=== PATIENT | female | born 1990 | race Caucasian/White ===

== ENCOUNTER → 2017-04-07 21:22 | Observation (INO) ==
--- NOTE | 2017-04-07 23:28 | OB/GYN Progress Note ---
Date of Encounter: 04/07/17 Time of Encounter: 21:40 - Assessment and Plan (1) 38 weeks gestation of Status: Acute (2) False labor Status: Acute Patient was seen and evaluated by RN. No cervical change since her appointment Saturday. Reactive NST. Discharge order given by phone. Objective - Vital Signs Vital Signs: Intake and Output 04/07/17 04/07/17 04/07/17 07:59 15:59 23:59 Other: Weight 86.3 kg Patient Weight 04/07/17 23:59 Weight 86.3 kg
== END | disposition home or self-care (01) ==
LOC: 1NENULAB
PROVIDERS: ADMIT Obstetrics & Gynecology; ATTEND Obstetrics & Gynecology

== ENCOUNTER 2017-04-16 14:58 | Inpatient (IN) ==
[2017-04-16] MEDS ORDERED: Naloxone 0.4 MG/ML INJ IVP PRN (15:19)
[2017-04-16] MEDS ORDERED: Famotidine 20 MG/2 ML VIAL IVP PRN (15:19)
[2017-04-16] MEDS ORDERED: Ondansetron 4 MG/2 ML VIAL IVP PRN (15:19)
[2017-04-16] MEDS ORDERED: Ringers Solution, Lactated 1,000 ML IVC SCH (15:30)
[2017-04-16 16:14] LABS: Basophils % 0.3 %; Eosinophils # 0.2 K/mcL (0.0-0.6); Eosinophils % 1.5 %; Hematocrit 35.2 % (35.3-44.9); Hemoglobin 12.2 g/dL (11.5-15.4); Immature Granulocytes % 0.7 % (0-4); Lymphocytes # 2.3 K/mcL (0.6-4.6); Lymphocytes % 22.3 %; Mean Corpuscular HGB Conc 34.7 g/dL (31.6-35.5); Mean Corpuscular Hemoglobin 30.8 pg (28.0-33.3); Mean Corpuscular Volume 88.9 fL (83.0-100.0); Mean Platelet Volume 11.7 fL (9.4-12.4); Monocytes # 0.6 K/mcL (0.0-1.3); Monocytes % 5.7 %; Neutrophils # 7.1 K/mcL (1.6-8.9); Platelet Count 284 K/mcL (140-400); Red Blood Count 3.96 M/mcL (3.82-4.97); Red Cell Distribution Width 12.3 % (11.5-14.5); Segmented Neutrophils % 69.5 %
--- NOTE | 2017-04-16 16:29 | Anesthesia Evaluation PreOp ---
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 Cervical cerclage under spinal without problems.) : Yes Alcohol Use: none Drug use: none Medications and Allergies [id number]/Iron Fumarate/FA/Dss [ 19 Tablet] 1 tab PO DAILY 04/07/17 [ History] Buprenorphine HCl [Subutex] 1 tab PO BID 04/16/17 [History] Loratadine [Claritin] 1 tab PO DAILY 04/16/17 [History] Macrobid 100 mg Capsule 1 tab PO BID 04/16/17 [History] Allergies Amoxicillin [From Augmentin] Allergy (Verified 04/16/17 15:31) Rash clavulanic acid [From Augmentin] Allergy (Verified 04/16/17 15:31) Rash - Meds/Allergy Pre-op Review Medications Reviewed: Yes Allergies Reviewed: Yes Beta Blockers on Current Med List: No Anesthesia Results - Labs 04/16/17 15:50 Anesthesia Exam vss Weight: 88kg NPO (# of Hours): 3 Pain Scale: 0 Pain Scale Used: Numeric (1 - 10) - HEENT Pupil (Motor): Pupils equal, EOMI Mallampati: II Teeth: Normal Oral Opening: Greater than 3 - INSTRUMENTS SALES REPRESENTATIVE LOC: Oriented INSTRUMENTS SALES REPRESENTATIVE Motor: Normal RUE, Normal LUE, Normal RLE, Normal LLE, Normal Face [employer]UMENTS SALES REPRESENTATIVE Sensory: Normal: RUE, LUE, RLE, LLE, Face - Cardiac Rhythm: Regular - Pulmonary Breath Sounds: bilateral Clear Respiratory Effort: Symmetrical Anesthesia Assess/Plan ASA Score: 2 Modified Ong Scale for Level of Consciousness: Cooperative, oriented, and tranquil Anesthetic Plan: Regional Monitoring Plan: Standard Monitors
[2017-04-16] MEDS ORDERED: *HR* FentaNYL (PF) 100 MCG/2 ML VIAL EP ONE (16:31)
[2017-04-16] MEDS ORDERED: Bupivacaine-MPF 0.25% 10 ML VIAL EP ONE (16:31)
--- NOTE | 2017-04-16 16:44 | OB/GYN History & Physical ---
Date of Encounter: 04/16/17 Time of Encounter: 16:39 Assessment and Plan (1) 39 weeks gestation of Current visit: Yes Status: Acute Patient admitted for delivery (2) Spontaneous rupture of amniotic membranes Current visit: Yes Status: Acute Patient admitted + Nitrazine. Patient grossly ruptured. (3) complicated by subutex maintenance, antepartum Current visit: Yes Status: Acute Infant 5 day hold. History of Present Illness Chief complaint: SROM HPI: Ms. Johnson is a 26 year old female at 39w3d presents to labor and delivery with c/o spontaneous rupture of membranes. Patient states her water broke around 1300. Patient denies any color or odor. Patient denies contractions or VB. Patient reports +FM. Patient had a cerclage removed on 2016. Patient has history of 20 and 22 week delivery. Patient is on Subutex. Blood type: B+, Rubella: Immune, Hep B: Negative, GBS: negative. Past Med Surg Social Fam HX - Past Medical History Source: patient Medical history: no medical history Psychiatric history: no psych history - Past Surgical History Surgical History: other - Social History Smoking Status: Former smoker Smokeless Tobacco Status: No Alcohol use: none Drug use: none Activity Level: Independent ambulation Recent Out of Country Travel Within the Last 8 Weeks: No Exposure or Possible Exposure to Illness During Travel: No - Family History Mother Adopted: No Living Status: Still Living Hx Family Cardiac Disorders: No Hx Family Respiratory Disorders: No Hx Family Cancer: Yes Hx Family GI Disorders: No Hx Family Genitourinary Disorders: No Hx Family Endocrine Disorder: Yes Hx Family Musculoskeletal Disorders: No Hx Family Neuromuscular Disorders: No Hx Family Neurologic Disorders: No Hx Family HEENT Disorders: No Hx Family Autoimmune Disorders: No Hx Family Reproductive Disorders: No Hx Family Psychosocial Disorders: No Hx Family Medical Disorders: No Obstetrical History - Pregnancies : 3 Para: 0 Term: 0 : 2 Ab's: 0 Livin - History/Complications History/Complications: 20 week and 22 week vaginal delivery Medications and Allergies Cow500/Iron Fumarate/FA/Dss [ 19 Tablet] 1 tab PO DAILY 04/07/17 [ History] Buprenorphine HCl [Subutex] 1 tab PO BID 04/16/17 [History] Loratadine [Claritin] 1 tab PO DAILY 04/16/17 [History] Macrobid 100 mg Capsule 1 tab PO BID 04/16/17 [History] Allergies Amoxicillin [From Augmentin] Allergy (Verified 04/16/17 15:31) Rash clavulanic acid [From Augmentin] Allergy (Verified 04/16/17 15:31) Rash Review of System OB - Constitutional Constitutional ROS IM: no chills, no fatigue, no fever(s), no headache(s) - Cardiovascular Cardiovascular: pedal edema, no chest pain, no lightheadedness, no palpitations , no rapid heart rate, no slow heart rate, no syncope - Respiratory Respiratory: no cough, no dyspnea - Gastrointestinal Gastrointestinal: no abdominal pain, no constipation, no cramping, no diarrhea, no heartburn, no nausea, no vomiting - Genitourinary Genitourinary: no abnormal vaginal bleeding, no dysuria, no flank pain, no urinary incontinence, no urinary urgency, no vaginal discharge, no vaginal odor , no vaginal pruritis Exam - Constitutional Constitutional: well developed, well nourished, no acute distress, average body habitus - HEENT HEENT: Normocephaly, Mucus Membranes Moist - Neck Neck exam: full ROM, supple - Lungs Respiratory exam: CTAB - Cardiovascular Cardiovascular exam: RRR, +S1, +S2 - Abdomen Abdomen: Present: bowel sounds normal, gravid, non tender - Extremities Extremities exam: full ROM, normal inspection, pedal edema (1+ bilateral) Deep Tendon Reflex Grade: 2+ Normal - Cervix Dilation: 2 (per RN) Effacement: 80 - Uterus Uterus exam: Present: normal size, normal contour - Anus/Rectum Anus/Rectum: Present: normal perianal skin (FHR 135 bpm moderate variability + 15x15 accels no decels noted. Irregular contractions noted. ) Results Result Diagrams: 04/16/17 15:50 Abnormal lab results Hct 35.2 % (35.3-44.9) L 04/16/17 15:50 All other labs normal. - VTE Reasons for not Prescribing Prophylaxis: Treatment not Indicated - Low risk for VTE
[2017-04-16] MEDS ORDERED: Epidural Premix (fent/bupiv) 110 ML EP SCH (16:45)
[2017-04-16] MEDS ORDERED: miSOPROStol 100 MCG TABLET PO STA (17:12)
--- NOTE | 2017-04-16 19:31 | OB Labor Progress Note ---
Date of Encounter: 04/16/17 Time of Encounter: 19:29 Labor Progress Note - Subjective Subjective: Patient breathing through contractions. Patient reports the contractions are getting stronger and closer together. - Cervix Cervix: 3/90/-1 - Heart Tones Heart Tones: 135 bpm moderate variability +15x15 accels no decels noted. - [place]: 2-3 min apart - Interventions Interventions: SVE - Plan Plan: Continue labor management.
[2017-04-16] MEDS ORDERED: *HR* FentaNYL (PF) 100 MCG/2 ML VIAL ONE ×2 (20:15→22:06)
[2017-04-16] MEDS ORDERED: Bupivacaine-MPF 0.25% 10 ML VIAL ONE ×3 (20:16→22:06)
[2017-04-16] MEDS ORDERED: Epidural Premix (fent/bupiv) 110 ML EP ONE (20:16)
--- NOTE | 2017-04-16 20:46 | Anesthesia Procedures ---
Date of Encounter: 04/16/17 Time of Encounter: 20:18 Procedures: Anesthesia - Epidural/Spinal Patient ID/Chart reviewed: Yes Patient examined: Yes OB Eval: Gestational age: 39 OB Eval: : 3 OB Eval: Hx Para: 2 OB Eval: Dilated at (cm): 3 OB Eval: Contractions: Non-stressed pattern Consent Obtained: Yes Supplemental Oxygen: None/Room Air Site Prep: Aseptic Technique, Sterile prep and drape, Povidone-Iodine 1% Patient position: upright Local Anesthetic: Lidocaine 1% Amount of Local Anesthetic used: 3 Touhy Needle Gauge: 18 Touhy Needle Depth (cm): 6 Catheter Depth at Skin (cm): 18 Test Dose (1.5% Lido + Epi): Volume given (mls): 3 Test Dose Result: Negative Loading Dose: 0.25% Marcaine (mls): 8 Loading Dose: Fentanyl (mcg): 100 Loading Dose Administered: Thru Catheter Infusion Med: 0.125% Bupivacaine w/ 2 mcg/ml Fentanyl Infusion Rate (mls/hr): [address]: Tegaderm, Tape Interspace Used: L3-L4 Loss of Resistance (NATALIIA): Yes Blood: No CSF: No Paresthesia: No Vitals + FHT's: VSS and FHTs stable throughout entire procedure.
--- NOTE | 2017-04-16 22:04 | Anesthesia Progress Note ---
Date of Encounter: 04/16/17 Time of Encounter: 21:00 Anesthesia Note - Note Note: 04/16/17 22:00 called to LDR 10 for complaints of pain 9/10 to lower back and abdomen and vagina. Was 3cm at cervical check. VSS. Bolused cateter with 5ml 0.25 % bupivacaine and 5ml 0.9NS. Tolerated well. Upon recheck of patient in 15 minutes , she stated no relief of pain. Pulled back on epidural catheter to 14cm and redosed catheter with 5ml 0.25% bupivacaine and 5ml 0.9 NS. After 15 minutes there is no change in pain level. Patient elects to redo epidural. VSS throughout.
--- NOTE | 2017-04-16 23:10 | Anesthesia Procedures ---
Date of Encounter: 04/16/17 Time of Encounter: 22:09 Procedures: Anesthesia - Epidural/Spinal Patient ID/Chart reviewed: Yes Patient examined: Yes OB Eval: Gestational age: 39 OB Eval: : 3 OB Eval: Hx Para: 2 OB Eval: Dilated at (cm): 3 OB Eval: Contractions: Non-stressed pattern Consent Obtained: Yes Supplemental Oxygen: None/Room Air Site Prep: Aseptic Technique, Sterile prep and drape, Povidone-Iodine 1% Patient position: upright Local Anesthetic: Lidocaine 1% Amount of Local Anesthetic used: 5 Touhy Needle Gauge: 18 Touhy Needle Depth (cm): 6 Catheter Depth at Skin (cm): 15 Test Dose (1.5% Lido + Epi): Volume given (mls): 3 Test Dose Result: Negative Loading Dose: 0.25% Marcaine (mls): 8 Loading Dose: Fentanyl (mcg): 100 Loading Dose Administered: Thru Catheter Infusion Med: 0.125% Bupivacaine w/ 2 mcg/ml Fentanyl Infusion Rate (mls/hr): [address]: Tegaderm, Tape Interspace Used: L2-L3 Loss of Resistance (NATALIIA): Yes Blood: No CSF: No Paresthesia: No Procedure: Patient elected to have epidural redone due to no relief of pain. After multiple attempts (encountered bone at each attempt), successful placement into epidural space at L2-3. Patient tolerated the procedure well. VSS and FHTs stable throughout procedure. Vitals + FHT's: VSS and FHTs stable throughout procedure.
--- NOTE | 2017-04-16 23:31 | OB Labor Progress Note ---
Date of Encounter: 04/16/17 Time of Encounter: 23:29 Labor Progress Note - Subjective Subjective: Comfortable with epidural - Cervix Cervix: 6/100/0 - Heart Tones Heart Tones: RNST - [place]: UC's q - Plan Plan: Expect
--- NOTE | 2017-04-17 01:49 | OB/GYN Procedure Note ---
Delivery - Delivery Date: 04/17/17 Provider: Jarrett Mann Intrapartum events: none Delivery induction: none Delivery monitor: external FHT, external uterine Anesthesia: epidural Estimated Blood Loss: 200 - Infant (s) Infant A Delivery Date: 04/17/17 Infant Delivery Time: 01:33 Presentation: vertex Position: NIRANJAN Route of delivery: Gender: Female Viability: Viable Pounds: 6 Ounces: 6 at 1 minute: 9 at 5 mins: 9 Shoulder Dystocia: not encountered Specimens collected: cord blood Placenta: spontaneous Cord: nuchal cord, 3 umbilical vessels - Repair Episiotomy: none Laceration Description: None - Complications Delivery complications: none - Disposition Mom disposition: stable in LDR disposition: stable in LDR - Comments Comments: Pt s/p of liveborn female without complications. No laceration. Spontaneous delivery of normal placenta. EBL 200 c
[2017-04-17] MEDS ORDERED: Sennosides 8.6 MG TABLET PO PRN (04:46)
[2017-04-17] MEDS ORDERED: Rho Immune Globulin 1,500 UNIT SYRINGE IM PRN (04:46)
[2017-04-17] MEDS ORDERED: Ibuprofen 600 MG TABLET PO PRN (04:46)
[2017-04-17] MEDS ORDERED: Oxytocin 20 units/ LR 1000 mL 20 UNIT/1,000 ML BAG IVC ONE (04:46)
[2017-04-17] MEDS ORDERED: Oxytocin 20 units/ LR 1000 mL 20 UNIT/1,000 ML BAG IVC SCH (04:46)
[2017-04-17] MEDS ORDERED: Measles/Mumps/Rubella Vacc 0.5 ML VIAL SQ PRN (04:46)
[2017-04-17] MEDS ORDERED: Acetaminophen 325 MG TABLET PO PRN (04:46)
[2017-04-17 08:17] VITALS: BP 111/70
--- NOTE | 2017-04-17 08:50 | OB/GYN Progress Note ---
Date of Encounter: 04/17/17 Time of Encounter: 08:48 - Assessment and Plan (1) Vaginal delivery Current Visit: Yes Status: Acute Pt progressing to milestones, pain well managed. Pt on subutex, but took last dose yesterday. Discussed with patient she will need to have rx filled by her usual clinic, as we are unable to prescribe for her, but we can facilitate early discharge so she can obtain rx if desired. Pt verbalizes understanding. (2) complicated by subutex maintenance, antepartum Current Visit: Yes Status: Acute Subjective - Subjective Patient reports: appetite normal, voiding normally, pain well controlled, ambulating normally [place]: doing well Objective - Latest Vital Signs Latest vital signs: Vital Signs Temp Pulse Resp BP Pulse Ox 04/17/17 07:30 98.3 F 95 12 111/70 98 04/17/17 06:10 98.2 F 97 12 117/0 99 04/17/17 05:15 99.1 F 97 14 114/70 98 04/17/17 04:15 98.7 F 85 16 105/67 99 Intake and Output 04/16/17 04/17/17 04/17/17 23:59 07:59 15:59 Output Total 200 / 200 Balance -200 / -200 Output: Urine 200 / 200 Other: Weight 86.4 kg Patient Weight 04/17/17 23:59 Weight 86.4 kg - Exam Lungs: bilateral: normal Chest: Normal S1, Normal S2 Extremities: Present: normal Abdomen: Present: normal appearance, soft Uterus: Present: firm Uterus Position: At Umbilicus - Labs Labs: Laboratory Results - last 24 hr 04/16/17 15:50 WBC 10.2 RBC 3.96 Hgb 12.2 Hct 35.2 L MCV 88.9 MCH 30.8 MCHC 34.7 RDW 12.3 Plt Count 284 MPV 11.7 Immature Gran % 0.7 Seg Neutrophils % 69.5 Lymphocytes % 22.3 Monocytes % 5.7 Eosinophils % 1.5 Basophils % 0.3 Neutrophils # 7.1 Lymphocytes # 2.3 Monocytes # 0.6 Eosinophils # 0.2 Basophils # 0.0
[2017-04-17] MEDS ORDERED: Loratadine 10 MG TABLET PO SCH (09:00)
[2017-04-17] MEDS ORDERED: Prenatal Vit/FA 1 EACH TABLET PO SCH (09:00)
[2017-04-17] MEDS ORDERED: *HR* Buprenorphine HCl 8 MG TAB.SUBL SL SCH (09:00)
[2017-04-17] MEDS ORDERED: Nitrofurantoin (BID) 100 MG CAPSULE PO SCH (09:00)
--- NOTE | 2017-04-17 12:11 | Discharge Summary ---
Date of Encounter: 04/17/17 Time of Encounter: 12:09 - Discharge Diagnosis (1) Vaginal delivery Priority: Primary Status: Acute (2) complicated by subutex maintenance, antepartum Priority: Secondary Status: Acute - Discharge Medications Prescriptions: Ibuprofen [Motrin] 600 mg PO Q6HR PRN #60 tablet PRN Reason: Cramping Docusate [Colace] 100 mg PO BID #60 capsule Home Medications: [id number]/Iron Fumarate/FA/Dss [ 19 Tablet] 1 tab PO DAILY 04/07/17 [ History] Buprenorphine HCl [Subutex] 1 tab PO BID 04/16/17 [History] Loratadine [Claritin] 1 tab PO DAILY 04/16/17 [History] Macrobid 100 mg Capsule 1 tab PO BID 04/16/17 [History] Acetaminophen [Tylenol] 650 mg PO Q6HR PRN #0 tablet 04/17/17 [Rx] Docusate [Colace] 100 mg PO BID #60 capsule 04/17/17 [Rx] Ibuprofen [Motrin] 600 mg PO Q6HR PRN #60 tablet 04/17/17 [Rx] Allergies/Adverse Reactions: Allergies Amoxicillin [From Augmentin] Allergy (Verified 04/16/17 15:31) Rash clavulanic acid [From Augmentin] Allergy (Verified 04/16/17 15:31) Rash Data Procedures and tests throughout hospitalization: Laboratory Tests 04/16/17 15:50 WBC 10.2 RBC 3.96 Hgb 12.2 Hct 35.2 L MCV 88.9 MCH 30.8 MCHC 34.7 RDW 12.3 Plt Count 284 MPV 11.7 Immature Gran % 0.7 Seg Neutrophils % 69.5 Lymphocytes % 22.3 Monocytes % 5.7 Eosinophils % 1.5 Basophils % 0.3 Neutrophils # 7.1 Lymphocytes # 2.3 Monocytes # 0.6 Eosinophils # 0.2 Basophils # 0.0 Labs on day of discharge: Labs from last 24 hours 04/16/17 15:50 WBC 10.2 RBC 3.96 Hgb 12.2 Hct 35.2 L MCV 88.9 MCH 30.8 MCHC 34.7 RDW 12.3 Plt Count 284 MPV 11.7 Immature Gran % 0.7 Seg Neutrophils % 69.5 Lymphocytes % 22.3 Monocytes % 5.7 Eosinophils % 1.5 Basophils % 0.3 Neutrophils # 7.1 Lymphocytes # 2.3 Monocytes # 0.6 Eosinophils # 0.2 Basophils # 0.0 Date of admission: 04/16/17 14:58 Primary care physician: Eduardo Sims MD Consults: 04/17/17 04:46 Consult to [place] Agent [CONS] Routine Comment: Vaginal delivery, consult needed Consult to Radiation Oncology Manager [CONS] Routine Reason for SW Consult: Narcotics addcition narcotics addiction Discharging clinician: Tracey Pearce Anticipated date of discharge: 04/17/17 - Patient Status Disposition: Home, Self-Care Condition: Good Functional capacity at discharge: independent ambulation Overall status at discharge: patient is back to baseline - Discharge Instructions Follow Up With: Eduardo Sims MD [Primary Care Provider] - Jarrett Mann MD [Partnered Physician] - - Diet and Activity Activity: resume usual activities as tolerated Diet: regular diet Hospital Course Reason for admission: IUP at term Delivery: Episiotomy: none Laceration: none Other procedures: none complications: none Discharge diagnosis: IUP at term delivered baby: female Hospital course: Delivery - Delivery Date: 04/17/17 Provider: Jarrett Mann Intrapartum events: none Delivery induction: none Delivery monitor: external FHT, external uterine Anesthesia: epidural Estimated Blood Loss: 200 - Infant (s) A Delivery Date: 04/17/17 Delivery Time: 01:33 Presentation: vertex Position: NIRANJAN Route of delivery: Gender: Female Viability: Viable Pounds: 6 Ounces: 6 at 1 minute: 9 at 5 mins: 9 Shoulder Dystocia: not encountered Specimens collected: cord blood Placenta: spontaneous Cord: nuchal cord, 3 umbilical vessels - Repair Episiotomy: none Laceration Description: None - Complications Delivery complications: none - Disposition Mom disposition: stable in LDR [place] disposition: stable in LDR - Comments Comments: Pt s/p of liveborn female without complications. No laceration. Spontaneous delivery of normal placenta. EBL 200 c Time Attestation: Total time spent providing and/or coordinating discharge services: Time Spent: Less than 30 minutes Exam - Constitutional Vitals: Temp Pulse Resp BP Pulse Ox 98.3 F 95 12 111/70 98 04/17/17 07:30 06/28/17 07:30 04/17/17 10:14 04/17/17 07:30 04/17/17 07:30
== END 2017-04-17 13:00 | disposition home or self-care (01) | DRG 560 ==
LOC: 1NENULAB → OBSVTOIN 14:58 → 1NENUOBS 04-17 04:34
PROVIDERS: ADMIT Obstetrics & Gynecology; ATTEND Obstetrics & Gynecology

== ENCOUNTER 2021-09-11 14:06 | Inpatient (IN) ==
[~2021-09-11 14:06] MED LIST: *HR* Oxytocin 10 UNIT/ML VIAL IVC ONE; miSOPROStoL 100 MCG TABLET RC ONE
[2021-09-11] MEDS ORDERED: Lidocaine 1% 20 ML MDV INFILT PRN (14:09)
[2021-09-11] MEDS ORDERED: Famotidine 20 MG/2 ML VIAL IVP PRN (14:09)
[2021-09-11] MEDS ORDERED: Azithromycin 500 MG in 0.9 % Sodium Chloride 250 ML IVPB PRN (14:09)
[2021-09-11] MEDS ORDERED: Metoclopramide 10 MG/2 ML VIAL IVP PRN (14:09)
[2021-09-11] MEDS ORDERED: Naloxone 0.4 MG/ML INJ IVP PRN (14:09)
[2021-09-11] MEDS ORDERED: Ondansetron 4 MG/2 ML VIAL IVP PRN (14:09)
[2021-09-11] MEDS ORDERED: *HR* Nalbuphine 10 MG/ML AMPUL IV PRN (14:09)
[2021-09-11] MEDS ORDERED: Ringers Solution, Lactated 1,000 ML IVC SCH (14:15)
[2021-09-11] MEDS ORDERED: Oxytocin 20 units/ LR 1000 mL 20 UNIT/1,000 ML BAG IVC SCH (14:15)
[2021-09-11 15:23] LABS: Amphetamine Screen,Urine Negative ng/mL (Cutoff=1000); Barbiturate Screen,Urine Negative ng/mL (Cutoff=200); Benzodiazepines Screen,Urine Negative ng/mL (Cutoff=200); Cannabinoid Screen,Urine Negative ng/mL (Cutoff = 50); Cocaine Screen,Urine Negative ng/mL (Cutoff= 300); Opiate Screen,Urine Negative ng/mL (Cutoff=300); Phencyclidine Screen,Urine Negative ng/mL (Cutoff=25)
[2021-09-11 15:48] LABS: Influenza A PCR Negative (Negative); Influenza B PCR Negative (Negative); Resp. Syncytial Virus PCR Negative (Negative)
[2021-09-11 15:53] LABS: Basophils # 0.1 K/mcL (0.0-0.2); Basophils % 0.5 %; Eosinophils # 0.1 K/mcL (0.0-0.6); Eosinophils % 1.3 %; Hematocrit 42.5 % (35.3-44.9); Hemoglobin 14.7 g/dL (11.5-15.4); Immature Granulocytes % 0.8 % (0-4); Lymphocytes % 20.1 %; Mean Corpuscular HGB Conc 34.6 g/dL (31.6-35.5); Mean Corpuscular Hemoglobin 32.4 pg (28.0-33.3); Mean Corpuscular Volume 93.6 fL (83.0-100.0); Mean Platelet Volume 12.7 fL (9.4-12.4); Monocytes # 0.7 K/mcL (0.0-1.3); Monocytes % 7.1 %; Neutrophils # 7.1 K/mcL (1.6-8.9); Platelet Count 298 K/mcL (140-400); Red Blood Count 4.54 M/mcL (3.82-4.97); Red Cell Distribution Width 13.1 % (11.5-14.5); Segmented Neutrophils % 70.2 %
[2021-09-11 15:54] LABS: SARS-CoV-2 by PCR (In House) Negative (Negative)
[2021-09-11] MEDS ORDERED: EPHEDrine 50 MG/ML VIAL IVP PRN (19:44)
[2021-09-11] MEDS ORDERED: Epidural Premix (fent/bupiv) 110 ML EP SCH (19:45)
[2021-09-11] MEDS ORDERED: Epidural Premix (fent/bupiv) 0 ML EP ONE (19:48)
[2021-09-11] MEDS ORDERED: Benzocaine/Menthol 56 GM AEROSOL SPRAY TP PRN (21:24)
[2021-09-11] MEDS ORDERED: Rho Immune Globulin 1,500 UNIT SYRINGE IM PRN (21:24)
[2021-09-11] MEDS ORDERED: Lanolin 7 G OINT...G. TP PRN (21:24)
[2021-09-11] MEDS ORDERED: Measles/Mumps/Rubella Vacc 0.5 ML VIAL SQ PRN (21:24)
[2021-09-11] MEDS ORDERED: Ondansetron ODT 4 MG TAB.RAPDIS SL PRN (21:24)
[2021-09-11] MEDS: Acetaminophen 325 MG TABLET PO SCH (23:23)
[2021-09-12] MEDS: Ibuprofen 600 MG TABLET PO SCH ×2 (01:26→07:57)
[2021-09-12 03:53] LABS: Basophils # 0.1 K/mcL (0.0-0.2); Basophils % 0.3 %; Eosinophils # 0.1 K/mcL (0.0-0.6); Eosinophils % 0.5 %; Hematocrit 35.9 % (35.3-44.9); Immature Granulocytes % 0.6 % (0-4); Lymphocytes # 2.8 K/mcL (0.6-4.6); Lymphocytes % 15.2 %; Mean Corpuscular HGB Conc 34.3 g/dL (31.6-35.5); Mean Corpuscular Hemoglobin 31.9 pg (28.0-33.3); Mean Platelet Volume 12.3 fL (9.4-12.4); Monocytes # 1.4 K/mcL (0.0-1.3); Monocytes % 7.4 %; Platelet Count 262 K/mcL (140-400); Red Blood Count 3.86 M/mcL (3.82-4.97); Red Cell Distribution Width 12.9 % (11.5-14.5)
[2021-09-12 03:56] LABS: Hemoglobin 12.3 g/dL (11.5-15.4); Neutrophils # 14.1 K/mcL (1.6-8.9); White Blood Count 18.6 K/mcL (4.3-11.1)
[2021-09-12 07:56] VITALS: BP 99/66; TEMP 97.7; O2SAT 97
[2021-09-12] MEDS: Acetaminophen 325 MG TABLET PO SCH ×2 (07:56→16:14)
[2021-09-12] MEDS ORDERED: Prenatal Vit/FA 1 EACH TABLET PO SCH (09:00)
[2021-09-12 16:25] VITALS: PULSE 74
== END 2021-09-12 19:04 | disposition home or self-care (01) | DRG 560 ==
LOC: 1NENULAB 14:06 → 1NENUOBS 22:23
PROVIDERS: ADMIT Obstetrics & Gynecology; ATTEND Obstetrics & Gynecology